=== PATIENT | female | born 1990 | race Caucasian/White ===

== ENCOUNTER 2017-06-07 11:46 | Day surgery (SDC) | payer OTHER ==
[~2017-06-07] VITALS: Ht 160 cm; Wt 72.5 kg
[~2017-06-07 11:46] MED LIST: Camila0.35 MG; HYDR1TAB94 PO; IBUP600 PO; IBUP800 PO; LORA.5; MULT50L PO; Norco 5-325 Ta1 EACH PO; OXYACE5T PO; PRENATAL MULTI1 EAC3 PO; Percocet 5-3251 EACH PO; XARELTO15 MG PO; XARELTO20 MG PO; Zanaflex2 M1 PO; Zofran8 MG PO; [UNRECOGNIZED DRUG - OTHER]
== END 2017-06-07 14:47 | disposition home or self-care (01) ==
LOC: ORSCSDS 11:46
PROVIDERS: Obstetrics & Gynecology
PROC: 0UT74ZZ Resection of Bilateral Fallopian Tubes, Percutaneous Endoscopic Approach (ICD-10-PCS; principal; 2017-06-07 13:00)
DX: Z30.2 Encounter for sterilization (principal); R10.2 Pelvic and perineal pain; Z86.718 Personal history of other venous thrombosis and embolism; Z79.01 Long term (current) use of anticoagulants
CPT/HCPCS: 88302; J0171; J1100; J1885; J2250; J2405; J2710; J3010; J7120

== ENCOUNTER 2017-07-10 11:00 | Emergency (ER) | payer OTHER ==
[~2017-07-10] VITALS: Ht 157.5 cm; Wt 71.7 kg
[2017-07-10 12:40] LABS: Calcium, Ionized (POC) 1.13 mmol/L (1.10-1.46); Chloride (POC) 105 mmol/L (98-108); Creatinine (POC) 0.6 mg/dL (0.6-1.0); Glucose (ISTAT POC) 99 mg/dL (70-99); Hemoglobin (POC) 13.3 g/dL (12.0-16.0); Sodium (POC) 139 mmol/L (135-148); Total CO2 (POC) 22 mmol/L (21-32)
[2017-07-10] MEDS ORDERED: Zofran Odt4 MG SL (13:28)
== END 2017-07-10 13:45 | disposition home or self-care (01) ==
LOC: ER 11:00
PROVIDERS: Physician Assistant
DX: R55 Syncope and collapse (principal); Z87.891 Personal history of nicotine dependence; Z91.040 Latex allergy status; Z79.899 Other long term (current) drug therapy
CPT/HCPCS: 36415; 70450; 80047; 85014; 93005; 93010; 96374; 96375; 99284; J1100; J1200; J1885; J2405; J2765

== ENCOUNTER 2017-09-23 23:06 | Emergency (ER) | payer OTHER ==
[~2017-09-23] VITALS: Ht 160 cm; Wt 74.8 kg
[~2017-09-23 23:06] MED LIST changes: +Zofran Odt4 MG SL
[2017-09-24] MEDS ORDERED: Prednisone50 MG PO (03:04)
== END 2017-09-24 03:21 | disposition home or self-care (01) ==
LOC: ER 23:06
DX: T78.40XA Allergy, unspecified, initial encounter (principal); Z91.040 Latex allergy status
CPT/HCPCS: 99282; J1100

== ENCOUNTER 2019-09-10 19:24 | Emergency (ER) | payer BC, OTHER ==
[~2019-09-10] VITALS: Ht 157.5 cm; Wt 85.3 kg
[~2019-09-10 19:24] MED LIST changes: +Prednisone50 MG PO
[2019-09-10 20:09] LABS: BASOPHILS ABSOLUTE AUTO 0.04 K/mm3 (0.00-0.23); BASOPHILS PERCENT AUTO 1 % (0-2); EOSINOPHILS ABSOLUTE AUTO 0.25 K/mm3 (0.00-0.68); EOSINOPHILS PERCENT AUTO 3 % (0-6); Hematocrit 42.4 % (33.0-51.0); Hemoglobin 14.1 g/dL (11.5-16.0); IMMATURE GRAN ABSOLUTE AUTO 0.02 K/mm3 (0.00-0.10); IMMATURE GRAN PERCENT AUTO 0 % (0-1); LYMPHOCYTES ABSOLUTE AUTO 3.88 K/mm3 (0.84-5.20); LYMPHOCYTES PERCENT AUTO 45 % (21-46); MONOCYTES ABSOLUTE AUTO 0.59 K/mm3 (0.16-1.47); MONOCYTES PERCENT AUTO 7 % (4-13); Mean Corpuscular HGB 29.1 pg (26.0-34.0); Mean Corpuscular HGB Conc 33.3 g/dL (31.5-36.5); Mean Corpuscular Volume 87 fL (80-100); NEUTROPHILS PERCENT AUTO 45 % (41-73); NRBC ABSOLUTE 0.02 K/mm3 (0.00-0.02); NRBC Auto 0.2 /100 WBC (0.0-0.2); Platelet Count 322 K/mm3 (150-400); RDW Coefficient Variation 12.6 % (11.7-14.2); RDW Standard Deviation 39.8 fL (35.1-46.3); Red Blood Cell Count 4.85 M/mm3 (3.80-5.20); White Blood Cell Count 8.68 K/mm3 (4.00-11.30)
[2019-09-10 20:31] LABS: Source, Urine Clean Catch
[2019-09-10 20:31] LABS: Alanine Aminotransfer (ALT/SGP 39 U/L (12-78); Albumin, Blood 4.1 g/dL (3.4-5.0); Albumin/Globulin Ratio 1.1 (0.8-1.8); Alk Phos 53 U/L (50-136); Anion Gap 6 mmol/L (6-16); Aspartate Aminotrans (AST/SGOT 29 U/L (12-37); Bilirubin, Total 0.4 mg/dL (0.1-1.0); Blood Urea Nitrogen 15 mg/dL (8-24); Bun/Creatinine Ratio 17.8 (12.0-20.0); CO2, Blood 26 mmol/L (21-32); Calcium, Blood 9.1 mg/dL (8.5-10.1); Chloride, Blood 107 mmol/L (98-108); Creatinine, Blood 0.84 mg/dL (0.40-1.00); Globulin, Blood 3.8 g/dL (2.2-4.0); Glomerular Filtration Rate >60 (60-); Glucose, Blood 117 mg/dL (70-99); Potassium, Blood 3.8 mmol/L (3.5-5.5); Sodium, Blood 139 mmol/L (136-145); Total Protein, Blood 7.9 g/dL (6.4-8.2)
[2019-09-10 20:36] LABS: Bilirubin, Urine Neg (Neg); Blood, Urine Neg (Neg); Glucose Qualitative, Urine Neg (Neg); Ketones, Urine Neg (Neg); Leukocyte Esterase, Urine Neg (Neg); Nitrite, Urine Neg (Neg); Protein, Urine Neg (Neg); Urobilinogen, Urine NORM (Normal)
[2019-09-10 20:38] LABS: Appearance, Urine Clear (Clear); Color, Urine Pale Yellow (P-Yellow)
[2019-09-10] MEDS ORDERED: Pepcid20 MG PO (22:08)
== END 2019-09-10 22:58 | disposition home or self-care (01) ==
LOC: ER 19:24
PROVIDERS: Emergency Medicine
DX: K42.9 Umbilical hernia without obstruction or gangrene (principal)
CPT/HCPCS: 36415; 76705; 80053; 81003; 81025; 83690; 85025; 85379; 93005; 93010; 99284-25